=== PATIENT | male | born 1950 | race Caucasian/White ===

== ENCOUNTER → 2016-07-26 | Outpatient (CLI) | payer BC ==
[~2016-07-26] MED LIST: ASPI-875 PO; IOHEXOL 350 MG/ML 100 ML (OMNIPAQUE 350) VIAL IV ONE; ISOS30TA74 PO; LOSA1TAB20 PO; METO25TA PO; NAPR-243 PO; NS 100 ML (IVPB) BAG IV ONE; OMEG1CAP PO; OMEP20CA12 PO; SIMV20TA3 PO
--- OUTSIDE RECORDS SUMMARY | 2016-07-26 08:52 | XMS REPORT | Continuity of Care Document ---
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.8 HYPOPOTASSEMIA 11/22/2012 MIROSLAVA AGGARWAL MD Ot 345.90 EPILEPSY UNSPEC W/O MENTION INTRACTABLE 11/22/2012 MIROSLAVA AGGARWAL MD Ot 401.9 HYPERTENSION NOS 11/22/2012 MIROSLAVA AGGARWAL MD Ot 414.01 CORONARY ATHEROSCLEROSIS OF [place] CORON 11/22/2012 MIROSLAVA AGGARWAL MD Ot 424.1 AORTIC VALVE DISORDER 11/22/2012 MIROSLAVA AGGARWAL MD Ot 427.89 CARDIAC DYSRHYTHMIAS NEC 11/22/2012 MIROSLAVA AGGARWAL MD Ot 786.59 CHEST PAIN NEC 11/22/2012 MIROSLAVA AGGARWAL MD Ot V12.54 PERSONAL HX OF TIA, CEREBRAL INFARCTION 03/31/2016 MIROSLAVA AGGARWAL MD Ot R07.89 OTHER CHEST PAIN 04/13/2016 MIROSLAVA AGGARWAL MD Ot R07.89 OTHER CHEST PAIN Procedures Code Description Performed By Performed On 88.56 CORONAR ARTERIOGR-2 CATH 11/21/2012 Results Encounters ACCT No. Visit Date/Time Discharge Status Pt. Type Provider Facility Loc./Unit Complaint [id number] 11/21/2012 13:32:00 2012 16:10:00 DIS Inpatient MIROSLAVA AGGARWAL MD [facility] CSD CHEST PAIN CAD [id number] 03/30/2016 12:01:00 ACT Outpatient MIROSLAVA AGGARWAL MD [facility] CARD R07.89
--- NOTE | 2016-07-26 11:12 | Diagnostic Imaging Report ---
EXAM: CT ANGIO NECK W INDICATION: OCCLUSION AND STENOSIS OF LT CAROTID ARTERY COMPARISON: Carotid Doppler ultrasound 11/22/2012. FINDINGS: Conventional aortic arch. Mild scattered arterial calcifications including the aortic arch and carotid bifurcations. There is no narrowing, aneurysm or dissection involving the cervical carotid or vertebral arteries. The visualized [place] is unremarkable. The visualized dural venous sinuses are grossly patent. No soft tissue mass or fluid collection in the neck. The thyroid and major salivary glands are unremarkable. No cervical lymphadenopathy. Mild mucosal thickening in ethmoid sinuses. Mastoids are clear. Moderate spondylotic changes in the cervical spine. IMPRESSION: Minimal scattered atherosclerotic calcifications with no narrowing, aneurysm or dissection involving the major arteries in the neck. Dictated by: Dictated on workstation # [id number]
== END ==
LOC: RAD 08:49
PROVIDERS: ATTEND Internal Medicine Cardiovascular Disease
DX: I65.22 Occlusion and stenosis of left carotid artery (principal)
CPT/HCPCS: 70498